=== PATIENT | female | born 1965 | race Caucasian/White ===

== ENCOUNTER 2017-11-15 19:06 | Emergency (ER) | payer SELFPAY ==
[~2017-11-15] VITALS: Ht 165.1 cm; Wt 60.5 kg
[2017-11-15] MEDS ORDERED: KETOROLAC TROMETHAMINE 10 MG TABLET PO ONE (21:15)
[2017-11-15 21:22] VITALS: BP 124/73
== END 2017-11-15 21:25 | disposition home or self-care (01) ==
LOC: EMS 19:10
DX: S83.92XA Sprain of unspecified site of left knee, initial encounter (principal); W19.XXXA Unspecified fall, initial encounter; Y93.89 Activity, other specified; Y92.89 Other specified places as the place of occurrence of the external cause; Y99.8 Other external cause status
CPT/HCPCS: 29505; 99284